=== PATIENT | male | born 1995 | race Caucasian/White ===

== ENCOUNTER 2016-06-08 22:27 | Emergency (ER) | payer BC ==
--- NOTE | ~2016-06-08 | HP ---
History And Physical [address] [place]. [address] NAME: KYLEIGH FERRARA : 89 STATUS : FOR[facility]LY [facility] PAT#: [id number] AGE: 20 ADM/REG DATE : 06/08/16 MR#: [id number] REPORT SERV DATE: 06/09/16 DICTATED BY: WILBERT VILLARREAL DATE: 06/09/16 REPORT STATUS : Draft TRANSCRIBED BY: MODL DATE: 06/09/16 DATE OF ADMISSION: 06/08/2016 ATTENDING PHYSICIAN: Joanie Villarreal M.D. CHIEF COMPLAINT: Gluteal cleft pain and syncopal episode. HISTORY OF PRESENT ILLNESS: This is a 20-year-old male who approximately four days ago started having pain in superior portion of his gluteal cleft. He then started progressing to have associated symptoms of nausea, vomiting, diarrhea, fever, or chills. Positive anorexia, positive weakness, who has been having difficulty ambulating. He has been falling and then today he had a syncopal event where he fell and hit his head on the concrete. He was brought to the emergency department by his parents. The patient has never had anything like this before. No other sick contacts. REVIEW OF SYSTEMS: Twelve system review is negative as mentioned in the HPI. ALLERGIES: NO KNOWN DRUG ALLERGIES. PAST MEDICAL HISTORY: None, but mother does report he has epistaxis frequently. PAST SURGICAL HISTORY: Adenoidectomy and bilateral tympanostomy tubes. SOCIAL HISTORY: No tobacco, alcohol, or drug use. 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 FAMILY HISTORY: Lung cancer in his uncle. MEDICATIONS: None. PHYSICAL EXAMINATION: VITAL SIGNS: Pulse is 94, blood pressure 180/64, temperature 99.3, respiratory rate of 18, O2 sats 100%. GENERAL: This is a well-developed, well-nourished, white male, appears stated age. Has pain in left lateral decubitus position which is the most comfortable position for him. HEENT: Normocephalic, atraumatic. PERRLA. EOMI. Mucous membranes are moist. NECK: No lymphadenopathy. Trachea midline. CARDIOVASCULAR: Regular rate and rhythm. LUNGS: Clear to auscultation bilaterally respiratory. ABDOMEN: Soft, nondistended, nontender. Bowel sounds present. RECTAL: The patient has an indurated, erythematous, warm and tender to palpation full fluctuant mass at the superior portion of the gluteal cleft. There are some small spots of ulceration with purulent drainage noted. Also, the patient has coarse wiry hair. EXTREMITIES: No clubbing, cyanosis, or edema. 2+ pulses. MUSCULOSKELETAL: Moves all extremities well. History And Physical [address] [place]. [address] NAME: KYLEIGH FERRARA : 89 STATUS : DEP ER PAT#: [id number] AGE: 20 ADM/REG DATE : 06/08/16 MR#: [id number] REPORT SERV DATE: 06/09/16 DICTATED BY: WILBERT VILLARREAL DATE: 06/09/16 REPORT STATUS : Draft TRANSCRIBED BY: VJ DATE: 06/09/16 NEUROLOGIC: Cranial nerves II through XII are intact. A and O x3. LABORATORY DATA: White blood cell count 9.9, hematocrit 43.2, platelets of 179. Sodium 136, potassium 2.2, chloride 9, bicarb 27, BUN 7, creatinine 1.06, glucose 108, calcium 8.1, INR 1.2. CT scan showed a soft-tissue abscess. ASSESSMENT: A 20-year-old male with an abscess versus pilonidal cyst. 1. I and D this area in the ER and get a wound culture. 2. The patient is to follow up with Dr. Villarreal on 06/11/2016 in his office. I have asked the [facility] to supply prescription for hydrocodone, acetaminophen, and Bactrim. 3. Spoke with the parents of the patient. The patient is to remove packing tomorrow night. He is to take his shower at that time, he is to wash out the wound with soap water. He is to do sitz bath t.i.d. and after bowel movement and he is to place a dressing on there p.r.nNatan NAVA/VJ Joanie Villarreal M.D. / [id number]
--- NOTE | ~2016-06-08 | OP ---
Record Of Operation [facility] [address] [place]. [address] NAME: KYLEIGH FERRARA : 89 STATUS : REG ER PAT#: [id number] AGE: 20 ADM/REG DATE : 06/08/16 MR#: [id number] REPORT SERV DATE: 06/09/16 DICTATED BY: WILBERT VILLARREAL DATE: 06/09/16 REPORT STATUS : Draft TRANSCRIBED BY: MODL DATE: 06/09/16 DATE OF PROCEDURE: 06/09/2016 PREOPERATIVE DIAGNOSIS: Gluteal cleft abscess. POSTOPERATIVE DIAGNOSIS: Pilonidal cyst. PROCEDURE: Incision and drainage of gluteal cleft abscess. ATTENDING PHYSICIAN: Joanie Villarreal M.D. RESIDENT PHYSICIAN: Jaya Smith MD. PREPARATION: Betadine. ANESTHESIA: Dilaudid and 1% lidocaine. ESTIMATED BLOOD LOSS: Approximately 10 mL. SPECIMEN: Wound culture. COMPLICATIONS: None. FINDINGS: The patient had purulent black and green fluid in a very large abscess cavity that was at the superior portion of the gluteal cleft. When willfully debriding out the abscess cavity, there was hair removed from inside the abscess cavity consistent with a pilonidal cyst. INDICATION OF PROCEDURE: A 20-year-old male with an approximately four-day history of evolving pain to the superior portion of the gluteal cleft along with the evolution of systemic symptoms such as diarrhea, nausea, vomiting, fever, chills, anorexia, and weakness, and then eventually a syncopal episode. The patient was worked up in the emergency department, was found to have a gluteal cleft abscess. Risks, benefits, and alternatives were explained to the patient and the patient's family, and they expressed verbal understanding and wished to proceed forward with the procedure. DESCRIPTION OF PROCEDURE: Informed consent was obtained, the patient was placed in the left lateral decubitus position. A formal time-out was performed and all present in the ER room were in agreement, and we elected to proceed forward with the procedure. The area was then prepped and draped in standard fashion. We began by administering 1% lidocaine to the thinnest portion of the skin which was already ulcerating and leaking purulent fluid. We then did a circumferential block with 1% lidocaine around the abscess cavity. An elliptical incision was then made over the apex of the abscess where the skin was already the thinnest and was already ulcerated and leaking purulent fluid. The fluid that drained out was cultured, this was passed off the field. The ellipse of skin bridge was softly excised and Record Of Operation [address] [place]. [address] NAME: KYLEIGH FERRARA : 89 STATUS : REG ER PAT#: [id number] AGE: 20 ADM/REG DATE : 06/08/16 MR#: [id number] REPORT SERV DATE: 06/09/16 DICTATED BY: WILBERT VILLARREAL DATE: 06/09/16 REPORT STATUS : Draft TRANSCRIBED BY: MODL DATE: 06/09/16 transferred off the field. Approximately 20 to 30 mL of purulent fluid was expressed. A 4 x 4 gauze was then used to roughly debride out the abscess cavity. There was hair, but of course hair was removed out of the wound cavity consistent with a pilonidal cyst. The wound was then packed and sterilely dressed, and this concluded the procedure. DICTATED BY: MD MIRACLE Willis/VJ Joanie Villarreal M.D. / [id number] CC: Joanie Villarreal M.D.
[2016-06-08 16:38] LABS: BASOPHILS 0.1 %; BASOPHILS ABSOLUTE 0.01 10/3/uL (0.0-0.16); EOSINOPHILS 0.2 %; EOSINOPHILS ABSOLUTE 0.02 10/3/uL (0.0-0.53); HEMATOCRIT 43.2 % (40.0-51.0); HEMOGLOBIN 14.7 g/dL (13.6-17.8); IMMATURE GRANULOCYTES 0.1 %; IMMATURE GRANULOCYTES ABSOLUTE 0.01 10/3/uL (0.0-0.11); LYMPHOCYTES 8.6 %; LYMPHOCYTES ABSOLUTE 0.85 10/3/uL (0.67-4.30); MEAN CORPUSCULAR HEMOGLOB 31.6 pg (26.0-34.0); MEAN CORPUSCULAR VOLUME 92.9 fL (80-100); MEAN PLATELET VOLUME 9.9 fL (9.2-13.0); MONOCYTES 14.1 %; MONOCYTES ABSOLUTE 1.39 10/3/uL (0.21-1.20); NEUTROPHILS 76.9 %; NEUTROPHILS ABSOLUTE 7.59 10/3/uL (2.02-8.40); PLATELET COUNT 179 10/3/uL (150-400); RBC DISTRIBUTION WIDTH 12.4 % (12.0-16.0); RED CELL COUNT 4.65 10/6/uL (4.7-6.1)
[2016-06-08 16:39] LABS: ER CBC TAT 0 Hrs 12 Mins; MANUAL DIFF NO %; WHITE BLOOD CELLS 9.9 10/3/uL (4.5-10.5)
[2016-06-08 16:42] LABS: INTERNATIONAL NORMAL RATI 1.2 UNITS (-); PARTIAL THROMBO TIME 27.4 SEC (22.5-37.2); PROTIME (NOT ORD) 14.8 SEC (12.0-14.5)
[2016-06-08 16:50] LABS: BUN (BLOOD UREA NITROGEN) 7 MG/DL (6-23); CALCIUM, SERUM 8.1 MG/DL (8.5-10.4); CHEST PAIN PROFILE TAT 0 Hrs 23 Mins; CHLORIDE, SERUM 99 MMOL/L (96-112); CO2 (CARBON DIOXIDE) 27 MMOL/L (24-34); CREATININE 1.06 MG/DL (0.70-1.30); GFR AFRICAN AMERICAN 117 ML/MIN (>=60); GFR NON AFRICAN AMERICAN 101 ML/MIN (>=60); GLUCOSE, SERUM 108 MG/DL (60-99); POTASSIUM, SERUM 3.2 MMOL/L (3.5-5.3); SODIUM, SERUM 136 MMOL/L (135-148); TROPONIN I <0.02 NG/ML (<0.05)
[2016-06-08 20:54] LABS: ASCORBIC ACID (UR NOT ORDER) NEG (NEG); BILIRUBIN, URINE NEGATIVE (NEG); ER URINALYSIS TAT 0 Hrs 20 Mins; KETONE, URINE NEGATIVE (NEG); LEUKOCYTE ESTERASE(NOT OR NEG (NEG); NITRITE (URINE) NEG (NEG); WBC (NOT ORDERED) (RFLEX) 1 (0-5)
[2016-06-08 23:59] LABS: INFLUENZA A SCREEN NEGATIVE (NEGATIVE); INFLUENZA B SCREEN NEGATIVE (NEGATIVE)
== END 2016-06-09 05:14 | disposition home or self-care (01) ==
LOC: ER 22:27
PROVIDERS: Emergency Medicine; Hospitalist
PROC: 0J990ZZ Drainage of Buttock Subcutaneous Tissue and Fascia, Open Approach (ICD-10-PCS; principal; 2016-06-08)
DX: L02.31 Cutaneous abscess of buttock (principal)
CPT/HCPCS: 70450; 70486; 71020; 74177; 80048; 81001; 83605; 83735; 84484; 85025; 85610; 85730; 86308; 87040; 87070; 87205; 87804; 87880; 93005; 96374; 96375; 96376; 99285; A9270-GY; J1170; J2405; Q9967